=== PATIENT | female | born 1980 | race Caucasian/White ===

== ENCOUNTER → 2019-08-14 08:40 | Outpatient (POV) | payer OTHER, SELFPAY | PROVIDERS: Visit Provider Dermatology | DX: Z00.00 Encounter for general adult medical examination without abnormal findings (principal) ==

== ENCOUNTER → 2020-02-26 09:15 | Outpatient (POV) | payer OTHER, SELFPAY | PROVIDERS: Visit Provider Dermatology | DX: Z00.00 Encounter for general adult medical examination without abnormal findings (principal) ==

== ENCOUNTER → 2020-07-24 10:47 | Outpatient (CLI) | payer OTHER, SELFPAY ==
--- NOTE | 2020-07-24 10:51 | US_ITS ---
PROCEDURE: US THYROID CLINICAL INDICATION: ENLARGED THYROID COMPARISON: No exams were available for comparison FINDINGS: Right lobe: 4.7 x 1.7 x 1.2 cm. Tiny 2 millimeter cyst in the lower pole. Left lobe: 4.1 x 1.3 x 1 cm. No discrete cyst or nodule. Isthmus: Normal with normal thickness of 2 millimeters. Additional findings: Thyroid gland shows echogenicity and echotexture. Normal vascular flow. IMPRESSION: Tiny 2 mm cyst in the lower pole of the right thyroid lobe. Otherwise unremarkable thyroid ultrasound. Dictated by: Geronimo Marte MD 07/24/2020 13:29 Geronimo Marte MD in [facility] 07/24/2020 13:29
== END ==
PROVIDERS: PCP Nurse Practitioner Family; Visit Provider Nurse Practitioner Family
DX: E04.9 Nontoxic goiter, unspecified (principal)
CPT/HCPCS: 76536

== ENCOUNTER → 2021-08-31 13:33 | Outpatient (CLI) | payer BC, SELFPAY ==
[2021-08-31 14:27] LABS: Coronavirus 19, PCR Not Detected (NotDetected); Influenza A, PCR Not Detected (NotDetected); Influenza B, PCR Not Detected (NotDetected)
[2021-08-31 14:57] LABS: Basophils % 0.6 % (0.1-2.0); Eosinophils # 0.1 K/mm3 (0.0-0.4); Eosinophils % 1.7 % (0.1-12.0); Hemoglobin 12.4 g/dL (12.2-16.2); Lymphocytes # 2.4 K/mm3 (0.7-4.5); Lymphocytes % 31.3 % (10-50); Mean Corpuscular HGB Conc 34.5 g/dL (31.8-35.4); Mean Corpuscular Hemoglobin 31.7 pg (27.0-31.2); Mean Corpuscular Volume 91.7 fl (81-99); Mean Platelet Volume 9.4 fl (7.4-10.4); Monocytes # 0.4 K/mm3 (0.1-1.0); Monocytes % 5.5 % (1.7-9.3); Neutrophils # 4.6 K/mm3 (1.8-7.8); Neutrophils % 60.9 % (37.0-80.0); Platelet Count 243 K/mm3 (142-424); Red Blood Count 3.92 M/mm3 (4.20-5.40); Red Cell Distribution Width 12.3 % (11.5-17.5); Strep Scrn Group A (Rapid) Negative (Negative); White Blood Count 7.5 K/mm3 (4.8-10.8)
== END ==
PROVIDERS: PCP Nurse Practitioner Family; Visit Provider Nurse Practitioner Family
DX: Z20.822 Contact with and (suspected) exposure to COVID-19 (principal)
CPT/HCPCS: 36415; 85025; 87430; C9803; U0003; U0005